=== PATIENT | female | born 1970 | race Caucasian/White ===

== ENCOUNTER 2017-03-25 08:53 | Emergency (ER) | payer OTHER ==
[2017-03-25 09:02] VITALS: BP 114/53; PULSE 88; TEMP 98.1; BMI 17.7
--- NOTE | 2017-03-25 09:10 | PDOC ---
History of Present Illness - General Chief Complaint: Injury Stated Complaint: LEFT ANKLE PAIN Time Seen by Provider: 03/25/17 09:09 - History of Present Illness Initial Comments: 03/25/17 09:59 Chief complaint: Left ankle pain History of present illness: Inversion injury last night while going downstairs. Pain and swelling laterally. Initially weightbearing without difficulty, but later began to have more pain. Review of systems: Patient felt it but did not sustain any other injuries including injuries to the head neck chest abdomen spine pelvis or other extremities. She denies any pain in the left hip, thigh, knee, or calf. Past medical history: Healthy female, no active medical or surgical problems, IUD for contraception,. Regular, denies the possibility of Social/family history reviewed and noncontributory Physical exam: Alert and oriented well-developed well-nourished no acute distress cooperative Afebrile, vital signs normal Left ankle: There is moderate to severe swelling of the lateral ankle and foot. No deformity. No instability. Pulses full. No distal sensory deficits. Point tenderness mild but present over the lateral malleolus and fifth metatarsal base. Impression: Grade 2-3 ankle sprain, rule out fracture of distal fibula and or fifth metatarsal Plan: X-ray and further orthopedic management depending on results. 03/25/17 10:04 Past History - Past Medical History Allergies/Adverse Reactions: Allergies Allergy/AdvReac Type Severity Reaction Status Date / Time amoxicillin Allergy Intermediate Rash Verified 03/25/17 09:02 Home Medications: Ambulatory Orders Clarithromycin 500 mg PO BID 03/25/17 COPD: No Other medical history: pt denies - Suicide/Smoking/Psychosocial Hx Smoking History: Never smoked Hx Alcohol Use: Yes (occasional) Drug/Substance Use Hx: No Substance Use Type: None *Physical Exam - Vital Signs Last Vital Signs Temp Pulse Resp BP Pulse Ox 98.1 F 88 17 114/53 100 03/25/17 08:54 03/25/17 08:54 03/25/17 08:54 03/25/17 08:54 03/25/17 08:54 Medical Decision Making - Medical Decision Making 03/25/17 10:49 X-ray shows soft tissue swelling but no definite fracture of the ankle or foot Omer wrap applied. Stirrup splint fitted. Patient more comfortable and ambulating adequately. No distal numbness or tingling. Good toe motion. Capillary refill and pulses intact. Rest and elevation recommended for 24 hours, then weightbearing as tolerated. Follow-up orthopedist one week. *DC/Admit/Observation/Transfer Diagnosis at time of Disposition: Ankle sprain Qualifiers: Encounter type: initial encounter Involved ligament of ankle: tibiofibular ligament Laterality: left Qualified Code(s): S93.432A - Sprain of tibiofibular ligament of left ankle, initial encounter - Discharge Dispostion Disposition: HOME Condition at time of disposition: Improved Admit: No - Referrals Referrals: Sivakumar Castano MD [Staff Physician] - 1 week - Patient Instructions Printed Discharge Instructions: DI for Ankle Sprain, How to Apply an Omer Wrap Additional Instructions: Rest, elevation, ice, and Motrin for 24 hours. As pain subsides, begin weightbearing as tolerated. Limited walking prevent muscle weakness and 8 healing. See orthopedist if pain or swelling persists one week for further evaluation and treatment. Remove the Omer bandage at periodic intervals 4-6 hours, and then rewrap. - Post Discharge Activity Forms/Work/School Notes: Back to Work
== END 2017-03-25 11:00 | disposition home or self-care (01) ==
LOC: FER 08:53
PROC: 2W3RX1Z Immobilization of Left Lower Leg using Splint (ICD-10-PCS; principal; 2017-03-25)
DX: S93.432A Sprain of tibiofibular ligament of left ankle, initial encounter (principal); W10.9XXA Fall (on) (from) unspecified stairs and steps, initial encounter; Y93.89 Activity, other specified; Y92.9 Unspecified place or not applicable
CPT/HCPCS: 73610-TC-LT; 73630-TC-LT; 84703; 99282-25

== ENCOUNTER 2018-05-21 23:50 | Emergency (ER) | payer OTHER ==
[2018-05-21 23:57] VITALS: BP 124/83; PULSE 81; TEMP 98.1; BMI 17.5
--- NOTE | 2018-05-21 23:59 | PDOC ---
History of Present Illness - General Chief Complaint: Rash Stated Complaint: RASH Time Seen by Provider: 05/21/18 23:59 History Source: Patient Exam Limitations: No Limitations - History of Present Illness Initial Comments: 05/22/18 00:05 This is a 47-year-old female who comes in complaining of a possible rash. Patient has a history of anxiety and said she woke up feeling a little bit itchy and thought she saw a rash on her body so came in by the time she got here the rash resolved and the itchiness had also resolved. Patient denied any shortness of breath and chest pain or any other complaints. Patient said she was concerned because she was started on an antibiotic and wanted to make sure wasn't antibiotic. Patient is taking for an ear infection. Allergies: None Past Medical History: none Social history: Lives with family. No smoking. No alcohol. No illicit drugs. Surgical history: None General: No fevers or chills, no weakness, no weight loss HEENT: No change in vision. No sore throat,. No ear pain CardioVascular: no chest discomfort. No shortness of breath Respiratory:No cough, or wheezing. Gastrointestinal: no nausea, vomiting, diarrhea or constipation, No rectal bleeding Genitourinary: No dysuria, hematuria, or frequency Musculoskeletal: No joint or muscle pain or swelling Neurologic: No headache, vertigo, dizziness or loss of consciousness Psychiatric: nor depression Skin: No rashes or easy bruising Endocrine: no increased thirst or abnormal weight change Allergic: no skin or latex allergy All other systems reviewed and normal GENERAL: The patient is awake, alert, and fully oriented, in no acute distress. HEAD: Normal with no signs of trauma. EYES: Pupils equal, round and reactive to light, extraocular movements intact, sclera anicteric, conjunctiva clear. EXTREMITIES:atraumatic, Normal range of motion, no edema. NEUROLOGICAL: Normal speech, normal gait. PSYCH: Normal mood, normal affect. SKIN: Warm, Dry, normal turgor, no rashes or lesions noted. Assessment and plan: This is a 47-year-old female who came in anxious because she thought may be having an ALLERGIC reaction. Patient had no evidence of an ALLERGIC reaction at the time of my evaluation. Patient was reassured that at this time I saw no evidence of anything to be concerned regarding an ALLERGIC reaction and reassured her and discussed with her symptoms of a ALLERGIC reaction and what to be concerned about. Patient was discharged home will follow -up with her doctor I did recommend the patient continue the antibiotic she was on Past History - Past Medical History Allergies/Adverse Reactions: Allergies Allergy/AdvReac Type Severity Reaction Status Date / Time amoxicillin Allergy Intermediate Rash Verified 03/25/17 09:02 Home Medications: Ambulatory Orders Clarithromycin 500 mg PO BID 03/25/17 COPD: No Psychiatric Problems: Yes (ANXIETY) Other medical history: CURRENTLY RX FOR EAR INFECTION - Suicide/Smoking/Psychosocial Hx Smoking History: Never smoked Hx Alcohol Use: Yes (occasional) Drug/Substance Use Hx: No Substance Use Type: None *Physical Exam - Vital Signs Last Vital Signs Temp Pulse Resp BP Pulse Ox 98.1 F 81 20 124/83 100 05/21/18 23:52 05/21/18 23:52 05/21/18 23:52 05/21/18 23:52 05/21/18 23:52 Moderate Sedation - Procedure Monitoring Vital Signs: Procedure Monitoring Vital Signs Temperature 98.1 F 05/21/18 23:52 Pulse Rate 81 05/21/18 23:52 Respiratory Rate 20 05/21/18 23:52 Blood Pressure 124/83 05/21/18 23:52 O2 Sat by Pulse Oximetry (%) 100 05/21/18 23:52 *DC/Admit/Observation/Transfer Diagnosis at time of Disposition: Rash - Discharge Dispostion Disposition: HOME Condition at time of disposition: Stable Decision to Admit order: No - Referrals - Patient Instructions Additional Instructions: Return to the emergency department immediately with ANY new, persistent or worsening symptoms. Continue any medications as previously prescribed by your physician. You should follow up with your primary doctor as soon as possible regarding today's emergency department visit. . Please make sure your doctor reviews the results of your emergency evaluation. Thank you for coming to the Emergency Department today for your care. It was a pleasure to see you today. Please note that your evaluation is INCOMPLETE until you follow-up with your doctor. - Post Discharge Activity
== END 2018-05-22 00:10 | disposition home or self-care (01) ==
LOC: FER 23:50
DX: R21 Rash and other nonspecific skin eruption (principal)
CPT/HCPCS: 99281-25